=== PATIENT | female | born 1990 | race Caucasian/White ===

== ENCOUNTER 2017-10-20 05:26 | Inpatient (IN) | payer MEDICAID ==
[2017-10-20] MEDS ORDERED: Misoprostol 25 MCG (1/4 of 100 MCG) Tab VAG PRN (07:12)
[2017-10-20] MEDS ORDERED: Ondansetron 4 MG/2 ML SDV IVPUSH PRN (07:12)
[2017-10-20] MEDS ORDERED: Nalbuphine 20 MG/ML 1 ML Syringe IVPUSH PRN (07:12)
[2017-10-20] MEDS ORDERED: Sodium Chloride 0.9% 10 ML Syringe FLUSH PRN (07:12)
[2017-10-20] MEDS ORDERED: Oxytocin/Lactated Ringers 10 UNIT/1,000 ML BAG IV SCH ×2 (07:15)
--- NOTE | 2017-10-20 07:15 | PCM.LDHP ---
L&D History of Present Illness - General Date of Service: 10/20/17 Admit Problem/Dx: Patient Status Order with Admit Dx/Problem 10/20/17 07:13 Patient Status [ADT] Routine Admission Diagnosis/Problem Admission Diagnosis/Problem High risk Source of Information: Patient History Limitations: Reports: No Limitations - History of Present Illness Introduction:: Patient is a 26 y/o at 40 3/7 wks who presents for IOL. Doing well. Some cramping/pressure over the weekend, but no sher signs of labor. 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 : 2 Para: 0 LMP (Approximate): - Infectious Disease History Infectious Disease History: Reports: Hepatitis C, MRSA - Past Surgical History HEENT Surgical History: Reports: Oral Surgery GI Surgical History: Reports: Other (See Below) (Liver biopsy) Social & Family History - Tobacco Use Smoking Status *Q: Former Smoker - Alcohol Use Alcohol Use History: No - Recreational Drug Use Recreational Drug Use: No Drug Use in Last 12 Months: Yes Recreational Drug Type: Reports: Methamphetamine H&P Review of Systems - Review of Systems: Review Of Systems: See Below General: Reports: No Symptoms Pulmonary: Reports: No Symptoms Cardiovascular: Reports: No Symptoms Gastrointestinal: Reports: No Symptoms Genitourinary: Reports: No Symptoms Musculoskeletal: Reports: No Symptoms Psychiatric: Reports: No Symptoms Neurological: Reports: No Symptoms L&D Exam - Exam Exam: See Below - OB Specific Contraction Intensity: Irritability Movement: Active Heart Tones: Present Heart Tones per Min: 140 Heart Rate (FHR) Variability: Moderate (6-25 bmp) Presentation: Vertex - Livingston Score Livingston Score Cervix Position: Posterior Livingston Score Consistency: Soft Livingston Score Effacement: 51-70% Livingston Score Dilation: 1-2 cm Livingston Score Infant's Station: -2 Livingston Score Total: 6 - Exam General: Alert, Oriented, Cooperative Lungs: Clear to Auscultation, Normal Respiratory Effort Cardiovascular: Regular Rate, Regular Rhythm GI/Abdominal Exam: Soft, Non-Tender Genitourinary: Normal external exam Extremities: Normal Inspection Skin: Warm, Dry, Intact - Problem List (1) 40 weeks gestation of SNOMED Code(s): 82783928 ICD Code: Z3A.40 - 40 WEEKS GESTATION OF Status: Acute Current Visit: Yes (2) Hepatitis C SNOMED Code(s): 28228462 ICD Code: B19.20 - UNSPECIFIED VIRAL HEPATITIS C WITHOUT HEPATIC COMA Status: Acute Current Visit: Yes Qualifiers: Viral hepatitis chronicity: chronic Hepatic coma status: without hepatic coma Qualified Code(s): B18.2 - Chronic viral hepatitis C (3) History of methamphetamine abuse SNOMED Code(s): 201896867 ICD Code: Z87.898 - PERSONAL HISTORY OF OTHER SPECIFIED CONDITIONS Status: Acute Current Visit: Yes (4) Two vessel umbilical cord in malik , antepartum SNOMED Code(s): 022873439, 314310952 ICD Code: O09.899 - SUPERVISION OF OTHER HIGH RISK PREGNANCIES, UNSP TRIMESTER Status: Acute Current Visit: Yes Problem List Initiated/Reviewed/Updated: Yes Orders Last 24hrs: Active Orders 24 hr Category Date Time Status Patient Status [ADT] Routine ADT 10/20/17 07:13 Ordered Activity as Tolerated [RC] PFP Care 10/20/17 07:13 Ordered Communication Order [RC] ASDIRECTED Care 10/20/17 07:13 Ordered Communication Order [RC] ASDIRECTED Care 10/20/17 07:13 Ordered Communication Order [RC] ASDIRECTED Care 10/20/17 07:13 Ordered Monitoring [RC] INTERMITTENT Care 10/20/17 07:13 Ordered Non Stress Test [RC] PER UNIT ROUTINE Care 10/20/17 07:13 Ordered Notify Provider [RC] ASDIRECTED Care 10/20/17 07:13 Ordered Notify Provider [RC] PRN Care 10/20/17 07:13 Ordered Peripheral IV Care [RC] . DIRECTED Care 10/20/17 07:13 Ordered Vaginal Exam [RC] ASDIRECTED Care 10/20/17 07:13 Ordered Vital Signs [RC] ASDIRECTED Care 10/20/17 07:13 Ordered Vital Signs [RC] PER UNIT ROUTINE Care 10/20/17 07:13 Ordered Regular Diet [DIET] Diet 10/20/17 Breakfast Ordered CBC W/O DIFF,HEMOGRAM [HEME] Routine Lab 10/20/17 07:12 Ordered RAPID PLASMA REAGIN,RPR [CHEM] Routine Lab 10/20/17 07:13 Ordered TYPE AND SCREEN [BBK] Routine Lab 10/20/17 07:12 Ordered Lactated Ringers [Ringers, Lactated] 1,000 ml Med 10/20/17 07:15 Ordered IV ASDIRECTED Nalbuphine [Nubain] Med 10/20/17 07:12 Ordered 10 mg IVPUSH Q2H PRN Ondansetron [Zofran] Med 10/20/17 07:12 Ordered 4 mg IVPUSH Q4H PRN Oxytocin/Lactated Ringers [Pitocin in LR 10 Units/1,000 Med 10/20/17 07:15 Ordered ML] 10 unit in 1,000 ml IV .CONTINUOUS Oxytocin/Lactated Ringers [Pitocin in LR 10 Units/1,000 Med 10/20/17 07:15 Ordered ML] 10 unit in 1,000 ml IV TITRATE Sodium Chloride 0.9% [Saline Flush] Med 10/20/17 07:12 Ordered 10 ml FLUSH ASDIRECTED PRN miSOPROStol [Cytotec] Med 10/20/17 07:12 Ordered 25 mcg VAG Q4H PRN Electronic Heart Tones Internal [WOMSER] Per Unit Oth 10/20/17 07:13 Ordered Routine Peripheral IV Insertion Adult [OM.PC] Routine Oth 10/20/17 07:13 Ordered Assessment/Plan Comment:: 26 y/o at 40 3/7 wks in a complicated by 2 VC (normal growth) , hepatitis C, history of methamphetamine abuse, and current incarceration presents for IOL. * CBC, CMP, RPR, T&S * Will obtain MRSA swab in house to clear patient * Plan Cytotec to start IOL with pitocin/wilson bulb later on * GBS negative, no need for antibiotics * Pain management per patient preference * Anticipate
[2017-10-20] MEDS ORDERED: fentaNYL 100 MCG/2 ML SDV EPIDUR PRN (07:25)
[2017-10-20] MEDS ORDERED: ePHEDrine 50 MG/ML SDV IVPUSH PRN (07:25)
[2017-10-20] MEDS ORDERED: Misoprostol 25 MCG (1/4 of 100 MCG) Tab ONE (07:37)
--- NOTE | 2017-10-20 12:29 | PCM.PNLD ---
Labor Progress Note - VS & Meds Vital Signs: Last Vital Signs Temp 36.6 C 10/20/17 07:13 Pulse 67 10/20/17 07:13 Resp 16 10/20/17 07:13 BP 119/81 10/20/17 07:13 Pulse Ox Active Medications: Current Medications Ephedrine Sulfate (Ephedrine Sulfate) 5 mg IVPUSH ASDIRECTED PRN PRN Reason: HYPOTENTSION Fentanyl (Sublimaze) 100 mcg EPIDUR Q3H PRN PRN Reason: Pain Fentanyl/Bupivacaine HCl (Fentanyl/Bupivacaine/Ns 2 Mcg-0.125% 100 Ml) 100 ml EPIDUR ASDIRECTED YULIA Lactated Ringer's (Ringers, Lactated) 1,000 mls @ 40 mls/hr IV ASDIRECTED YULIA Oxytocin/Lactated Ringer's (Pitocin In Lr 10 Units/1,000 Ml) 10 unit in 1,000 mls @ 12 mls/hr IV TITRATE YULIA; Protocol Oxytocin/Lactated Ringer's (Pitocin In Lr 10 Units/1,000 Ml) 10 unit in 1,000 mls @ 500 mls/hr IV .CONTINUOUS YULIA Misoprostol (Cytotec) 25 mcg VAG Q4H PRN PRN Reason: cervical ripening Last Admin: 10/20/17 08:14 Dose: 25 mcg Nalbuphine HCl (Nubain) 10 mg IVPUSH Q2H PRN PRN Reason: pain Ondansetron HCl (Zofran) 4 mg IVPUSH Q4H PRN PRN Reason: Nausea/Vomiting Sodium Chloride (Saline Flush) 10 ml FLUSH ASDIRECTED PRN PRN Reason: Keep Vein Open Discontinued Medications Misoprostol (Cytotec) Confirm Administered Dose 25 mcg .ROUTE .STK-MED ONE Stop: 10/20/17 07:38 Last Admin: 10/20/17 11:58 Dose: Not Given - Uterine Contractions Uterine Monitoring Mode: External [place] Contraction Intensity: Mild Uterine Resting Tone: Soft - Monitoring Monitor Mode: External Ultrasound Heart Rate (FHR) Baseline: 135 Heart Rate (FHR) Variability: Moderate (6-25 bmp) Accelerations: Present, 15x15 Decelerations: None Strip Review: Category I - Vaginal Exam Dilation (cm): 2 Effacement (Percent): 75 Station: -2 Cervical Position: Midposition - Labor Progress (Free Text) Labor Progress: Doing well. Childress bulb placed. Will start pitocin.
[2017-10-20] MEDS: Lactated Ringers 1,000 ML IV SCH ×2 (12:42→16:00)
[2017-10-20] MEDS: Bupivacaine/fentaNYL/NS 100 ML Bag EPIDUR SCH (18:49)
--- NOTE | 2017-10-20 19:00 | PCM.PREANE ---
Preanesthetic Assessment - Anesthesia/Transfusion/Family Hx Anesthesia History: Prior Anesthesia Without Reaction Family History of Anesthesia Reaction: No Transfusion History: No Prior Transfusion(s) - Review of Systems General: No Symptoms Pulmonary: No Symptoms Cardiovascular: No Symptoms Gastrointestinal: Abdominal Pain (Contractions) Neurological: Numbness (fingers with ) Other: Reports: Liver Problems (hep C history) - Physical Assessment Pulse: 67 O2 Sat by Pulse Oximetry: 97 Respiratory Rate: 16 Blood Pressure: 119/61 Temperature: 36.3 C Vital Signs: Last Vital Signs Temp 36.6 C 10/20/17 07:13 Pulse 67 10/20/17 07:13 Resp 16 10/20/17 07:13 BP 119/81 10/20/17 07:13 Pulse Ox Height: 1.55 m Weight: 70.76 kg ASA Class: 2 Mental Status: Alert & Oriented x3 Airway Class: Mallampati = 2 Dentition: Reports: Normal Dentition Thyro-Mental Finger Breadths: 3 Mouth Opening Finger Breadths: 3 ROM/Head Extension: Full Lungs: Clear to Auscultation, Normal Respiratory Effort Cardiovascular: Regular Rate, Regular Rhythm - Lab Values: Laboratory Last Values WBC 8.63 K/mm3 (3.98-10.04) 10/20/17 07:44 RBC 4.27 M/mm3 (3.98-5.22) 10/20/17 07:44 Hgb 13.8 gm/L (11.2-15.7) 10/20/17 07:44 Hct 39.9 % (34.1-44.9) 10/20/17 07:44 MCV 93.4 fl (79.4-94.8) 10/20/17 07:44 MCH 32.3 pg (25.6-32.2) H 10/20/17 07:44 MCHC 34.6 g/dl (32.2-35.5) 10/20/17 07:44 RDW Std Deviation 42.3 fL (36.4-46.3) 10/20/17 07:44 Plt Count 219 K/mm3 (182-369) 10/20/17 07:44 MPV 9.0 fl (9.4-12.3) L 10/20/17 07:44 Sodium 139 mEq/L (136-145) 10/20/17 07:44 Potassium 3.7 mEq/L (3.5-5.1) 10/20/17 07:44 Chloride 105 mEq/L (98-107) 10/20/17 07:44 Carbon Dioxide 23 mEq/L (21-32) 10/20/17 07:44 Anion Gap 14.7 (5-15) 10/20/17 07:44 BUN 8 mg/dL (7-18) 10/20/17 07:44 Creatinine 0.6 mg/dL (0.55-1.02) 10/20/17 07:44 Est Cr Clr Drug Dosing TNP 10/20/17 07:44 Estimated GFR (MDRD) > 60 mL/min (>60) 10/20/17 07:44 BUN/Creatinine Ratio 13.3 (14-18) L 10/20/17 07:44 Glucose 80 mg/dL (74-106) 10/20/17 07:44 Calcium 8.7 mg/dL (8.5-10.1) 10/20/17 07:44 Total Bilirubin 0.5 mg/dL (0.2-1.0) 10/20/17 07:44 AST 28 U/L (15-37) 10/20/17 07:44 ALT 41 U/L (14-59) 10/20/17 07:44 Alkaline Phosphatase 224 U/L (46-116) H 10/20/17 07:44 Total Protein 6.1 g/dl (6.4-8.2) L 10/20/17 07:44 Albumin 2.5 g/dl (3.4-5.0) L 10/20/17 07:44 Globulin 3.6 gm/dL 10/20/17 07:44 Albumin/Globulin Ratio 0.7 (1-2) L 10/20/17 07:44 RPR Non-reactive (NONREACTIVE) 10/20/17 07:44 MRSA (PCR) Negative 10/20/17 08:00 Blood Type O POSITIVE 10/20/17 07:44 Gel Antibody Screen Negative 10/20/17 07:44 - Allergies Allergies/Adverse Reactions: Allergies Allergy/AdvReac Type Severity Reaction Status Date / Time No Known Allergies Allergy Verified 10/20/17 08:04 - Anesthesia Plan Pre-Op Medication Ordered: None - Acknowledgements Anesthesia Type Planned: Epidural Pt an Appropriate Candidate for the Planned Anesthesia: Yes Alternatives and Risks of Anesthesia Discussed w Pt/Guardian: Yes Pt/Guardian Understands and Agrees with Anesthesia Plan: Yes PreAnesthesia Questionnaire Gastrointestinal History: Reports: GERD, Hepatitis, Other (See Below) Other Gastrointestinal History: Hepatitis C 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: , 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 - Infectious Disease History Infectious Disease History: Reports: Hepatitis C, MRSA - Past Surgical History HEENT Surgical History: Reports: Oral Surgery GI Surgical History: Reports: Other (See Below) Other GI Surgeries/Procedures: liver biopsy - SUBSTANCE USE Smoking Status *Q: Former Smoker Second Hand Smoke Exposure: No Recreational Drug Use History: Yes Recreational Drug Type: Reports: Methamphetamine - HOME MEDS Home Medications: Home Meds Famotidine [Pepcid] 20 mg PO ASDIRECTED 10/20/17 [History] Vits #93/Iron Fum/FA [ Formula Tablet] 1 tab PO DAILY 10/20/17 [History] - CURRENT (IN HOUSE) MEDS Current Meds: Current Medications Ephedrine Sulfate (Ephedrine Sulfate) 5 mg IVPUSH ASDIRECTED PRN PRN Reason: HYPOTENTSION Fentanyl (Sublimaze) 100 mcg EPIDUR Q3H PRN PRN Reason: Pain Last Admin: 10/20/17 18:48 Dose: 100 mcg Fentanyl/Bupivacaine HCl (Fentanyl/Bupivacaine/Ns 2 Mcg-0.125% 100 Ml) 100 ml EPIDUR ASDIRECTED YULIA Last Admin: 10/20/17 18:49 Dose: 100 ml Lactated Ringer's (Ringers, Lactated) 1,000 mls @ 40 mls/hr IV ASDIRECTED YULIA Last Admin: 10/20/17 12:42 Dose: 40 mls/hr Oxytocin/Lactated Ringer's (Pitocin In Lr 10 Units/1,000 Ml) 10 unit in 1,000 mls @ 12 mls/hr IV TITRATE YULIA; Protocol Last Titration: 10/20/17 17:40 Dose: 5 munits/min, 30 mls/hr Oxytocin/Lactated Ringer's (Pitocin In Lr 10 Units/1,000 Ml) 10 unit in 1,000 mls @ 500 mls/hr IV .CONTINUOUS YULIA Misoprostol (Cytotec) 25 mcg VAG Q4H PRN PRN Reason: cervical ripening Last Admin: 10/20/17 08:14 Dose: 25 mcg Nalbuphine HCl (Nubain) 10 mg IVPUSH Q2H PRN PRN Reason: pain Ondansetron HCl (Zofran) 4 mg IVPUSH Q4H PRN PRN Reason: Nausea/Vomiting Sodium Chloride (Saline Flush) 10 ml FLUSH ASDIRECTED PRN PRN Reason: Keep Vein Open Discontinued Medications Misoprostol (Cytotec) Confirm Administered Dose 25 mcg .ROUTE .[employer] D&R ONE Stop: 10/20/17 07:38 Last Admin: 10/20/17 11:58 Dose: Not Given
--- NOTE | 2017-10-20 19:46 | PCM.PNLD ---
Labor Progress Note - VS & Meds Vital Signs: Last Vital Signs Temp 36.3 C 10/20/17 19:00 Pulse 67 10/20/17 19:00 Resp 16 10/20/17 19:00 BP 119/61 10/20/17 19:00 Pulse Ox 97 10/20/17 19:00 Active Medications: Current Medications Ephedrine Sulfate (Ephedrine Sulfate) 5 mg IVPUSH ASDIRECTED PRN PRN Reason: HYPOTENTSION Fentanyl (Sublimaze) 100 mcg EPIDUR Q3H PRN PRN Reason: Pain Last Admin: 10/20/17 18:48 Dose: 100 mcg Fentanyl/Bupivacaine HCl (Fentanyl/Bupivacaine/Ns 2 Mcg-0.125% 100 Ml) 100 ml EPIDUR ASDIRECTED YULIA Last Admin: 10/20/17 18:49 Dose: 100 ml Lactated Ringer's (Ringers, Lactated) 1,000 mls @ 40 mls/hr IV ASDIRECTED YULIA Last Admin: 10/20/17 16:00 Dose: 40 mls/hr Oxytocin/Lactated Ringer's (Pitocin In Lr 10 Units/1,000 Ml) 10 unit in 1,000 mls @ 12 mls/hr IV TITRATE YULIA; Protocol Last Titration: 10/20/17 17:40 Dose: 5 munits/min, 30 mls/hr Oxytocin/Lactated Ringer's (Pitocin In Lr 10 Units/1,000 Ml) 10 unit in 1,000 mls @ 500 mls/hr IV .CONTINUOUS YULIA Misoprostol (Cytotec) 25 mcg VAG Q4H PRN PRN Reason: cervical ripening Last Admin: 10/20/17 08:14 Dose: 25 mcg Nalbuphine HCl (Nubain) 10 mg IVPUSH Q2H PRN PRN Reason: pain Ondansetron HCl (Zofran) 4 mg IVPUSH Q4H PRN PRN Reason: Nausea/Vomiting Sodium Chloride (Saline Flush) 10 ml FLUSH ASDIRECTED PRN PRN Reason: Keep Vein Open Discontinued Medications Misoprostol (Cytotec) Confirm Administered Dose 25 mcg .ROUTE .STK-MED ONE Stop: 10/20/17 07:38 Last Admin: 10/20/17 11:58 Dose: Not Given - Uterine Contractions Uterine Monitoring Mode: External [place] Contraction Intensity: Mild Uterine Resting Tone: Soft - Monitoring Monitor Mode: External Ultrasound Heart Rate (FHR) Baseline: 140 Heart Rate (FHR) Variability: Moderate (6-25 bmp) Accelerations: Present, 15x15 Decelerations: Late Strip Review: Category II - Vaginal Exam Dilation (cm): 4 Effacement (Percent): 80 Station: -2 Cervical Position: Midposition - Labor Progress (Free Text) Labor Progress: Patient doing well currently. Pitocin up to a high of 12 and then started to have late decelerations. Pitocin decreased by half. Then received epidural and had blood pressure drop. Due to this did have a prolonged deceleration. Pitocin discontinued completely. Now comfortable. AROM performed with release of clear fluid. Will continue to monitor closely.
[2017-10-20] MEDS ORDERED: Bupivacaine 0.25% 10 ML SDV ONE (22:00)
[2017-10-21] MEDS: Bupivacaine/fentaNYL/NS 100 ML Bag EPIDUR SCH (02:32)
[2017-10-21] MEDS ORDERED: Acetaminophen 325 MG Tab PO ONE (03:34)
[2017-10-21] MEDS: Ampicillin 2 GM in Sodium Chloride 0.9% 100 ML IV SCH ×4 (04:16→22:38)
[2017-10-21] MEDS ORDERED: Gentamicin 40 MG/ML 2 ML Vial ONE (04:19)
[2017-10-21] MEDS ORDERED: Sodium Chloride 0.9% 100 ML ONE (04:21)
[2017-10-21] MEDS ORDERED: Citric Acid/Sodium Citrate Solution 30 ML Cup PO ONE (04:49)
[2017-10-21] MEDS ORDERED: Metoclopramide 10 MG/2 ML SDV IVPUSH ONE (04:49)
[2017-10-21] MEDS ORDERED: Clindamycin Phosphate 900 MG in Sodium Chloride 0.9% 100 ML IV ONE (04:49)
--- NOTE | 2017-10-21 04:55 | PCM.SN ---
- Free Text/Narrative Note: 0315 Called by nursing that patient 9 cm and with fever. Started Ampicillin and Gentamicin for chorioamnionitis. Presented to hospital afterwards. Exam by myself by arrival shows anterior lip and 0 station, but unfortunately baby asynclinic. Anterior lip reduced. With pushing effort head does not go past 0 station and attempt made to help rotate baby are unsuccessful. After slightly greater than 1 hour of pushing there has been no descent of baby. Explained to patient while this is not uncommon for a 1st time mom I am uncertain if her baby will rotate to allow vaginal delivery even with several more hours of pushing. Also, with Chorioamniotitis and pushing baby with episodes of tachycardia and variable decelerations. FHR has been intermittently with decelerations overnight as well. Reviewed all of the above with patient and she is willing to proceed with PLTCS. OR crew notified at [phone]. Cora Ochoa MD
[2017-10-21] MEDS ORDERED: Lidocaine 2% with EPINEPHrine 1:200,000 20 ML SDV ONE (04:59)
[2017-10-21] MEDS ORDERED: ceFAZolin 1 GM Vial ONE (04:59)
[2017-10-21] MEDS ORDERED: Lactated Ringers 1,000 ML ONE (05:32)
[2017-10-21] MEDS ORDERED: Ketorolac 30 MG/ML SDV ONE (05:32)
[2017-10-21] MEDS ORDERED: Oxytocin 10 Units/1 ML SDV ONE (05:32)
[2017-10-21] MEDS ORDERED: Meperidine PF 50 MG/ML Syringe ONE (05:36)
[2017-10-21] MEDS ORDERED: Phenylephrine/Normal Saline 100 MCG/ML 10 ML Syringe ONE (05:39)
[2017-10-21] MEDS ORDERED: Morphine PF 10 MG/10 ML SDV ONE (05:53)
--- NOTE | 2017-10-21 06:15 | PCM.POSTAN ---
POST ANESTHESIA ASSESSMENT - MENTAL STATUS Mental Status: Alert, Oriented - VITAL SIGNS Pulse Rate: 94 SaO2: 99 Resp Rate: 17 Blood Pressure: 91/51 Temperature: 37.7 C - RESPIRATORY Respiratory Status: Respiratory Rate WNL, Airway Patent, O2 Saturation Stable, Supplemental Oxygen - CARDIOVASCULAR CV Status: Pulse Rate WNL, Blood Pressure Stable - GASTROINTESTINAL GI Status: No Symptoms - PAIN Pain Score: 0 - POST OP HYDRATION Hydration Status: Adequate & Stable - OBSERVATIONS Free Text/Narrative:: no anesthesia complications noted
--- NOTE | 2017-10-21 06:15 | PCM.OPNOTE ---
- General Post-Op/Procedure Note Date of Surgery/Procedure: 10/21/17 Operative Procedure(s): Primary low transverse Findings: Baby boy in a vertex presentation - ROP. Weight of 7lbs 8oz, APGARS of 1, 4, and 7 Pre Op Diagnosis: 40 4/7 wks. 2VC. Chorioamnionitis. FTP - in 2nd stage ( although limited to only 1 hr given NRFS) Post-Op Diagnosis: Same Anesthesia Technique: Epidural Primary Surgeon: Cora Ochoa Secondary Surgeon: Dagoberto Colorado Jr Anesthesia Provider: Guillermo Waldrop Reason Manager Infrastructure Was Necessary: Speed, safety of case Pathology: Cord gas segment obtained. Cord blood obtained. Placenta discarded. Fluid Replacement, Intraop: 1,500 Output, Urine Amount: 15 EBL in mLs: 700 Complications: None Condition: Good Free Text/Narrative:: The risks, benefits, indications, potential complications, and alternatives were explained to the patient and informed consent obtained. After induction of anesthesia, the patient was placed in a supine position and then draped and prepped in the usual sterile manner. A Pfannenstiel incision was made and carried down through the subcutaneous tissue to the fascia. Fascial incision was made and extended transversely. The fascia was from the underlying rectus tissue superiorly and inferiorly. The peritoneum was identified and entered. Peritoneal incision was extended longitudinally. The utero-vesical peritoneal reflection was incised transversely and the bladder flap was bluntly freed from the lower uterine segment. A low transverse uterine incision was made sharply with a scalpel and extended bluntly in a cephalocaudad direction. A baby boy was delivered from a vertex presentation with APGARS as above. After the umbilical cord was clamped and cut a cord segment was obtained for cord gasses. Cord blood was obtained for evaluation. The placenta was removed intact and appeared normal. The uterus was exteriorized and cleared of clots. The uterine outline, tubes and ovaries appeared normal. The uterine incision was closed with running locked sutures of 0 Vicryl. Hemostasis was obtained with a second imbricating layer of 0 vicryl. The uterus was then placed back into the abdomen. Several additional sutures of 0 vicryl placed at left aspect of hysterotomy to obtain hemostasis. Yonny-seal then placed across hysterotomy. The fascia was then reapproximated with running sutures of 0 Vicryl. The sucutaneous tissue was irrigated with sterile warm normal saline, hemostasis obtained with cautery. The skin was reapproximated with running Subcuticular 4 -0 monocryl sutures. Instrument, sponge, and needle counts were correct prior the abdominal closure and at the conclusion of the case.
[2017-10-21] MEDS ORDERED: Benzocaine/Menthol 20%-0.5% Spray 56 GM Canister TOP PRN (08:09)
[2017-10-21] MEDS ORDERED: Witch Hazel Medicated Pads 100/Jar TOP PRN (11:37)
[2017-10-21] MEDS ORDERED: Ondansetron 4 MG/2 ML SDV IV PRN (11:37)
[2017-10-21] MEDS ORDERED: Dextrose 5%-Lactated Ringers 1,000 ML IV SCH (11:37)
[2017-10-21] MEDS ORDERED: Lanolin 100% Cream 7 GM Tube TOP PRN (11:37)
[2017-10-21] MEDS ORDERED: diphenhydrAMINE 50 MG/ML SDV IVPUSH PRN (11:37)
[2017-10-21] MEDS ORDERED: Docusate Sodium 100 MG Cap PO PRN (11:37)
[2017-10-21] MEDS ORDERED: ePHEDrine 50 MG/ML SDV IVPUSH PRN (11:37)
[2017-10-21] MEDS ORDERED: Naloxone 0.4 MG/ML SDV IVPUSH PRN (11:37)
[2017-10-21] MEDS: Ketorolac 30 MG/ML SDV IVPUSH SCH ×2 (12:00→18:09)
[2017-10-21] MEDS: Clindamycin Phosphate 900 MG in Sodium Chloride 0.9% 100 ML IV SCH ×2 (13:30→21:36)
[2017-10-21] MEDS: Acetaminophen/oxyCODONE 325-5 MG Tab PO PRN (22:56)
[2017-10-22] MEDS: Ketorolac 30 MG/ML SDV IVPUSH SCH (00:02)
[2017-10-22] MEDS: Ampicillin 2 GM in Sodium Chloride 0.9% 100 ML IV SCH (03:49)
[2017-10-22] MEDS ORDERED: Gentamicin 40 MG/ML 2 ML Vial ONE (04:46)
[2017-10-22] MEDS ORDERED: Sodium Chloride 0.9% 100 ML ONE (04:54)
[2017-10-22] MEDS: Clindamycin Phosphate 900 MG in Sodium Chloride 0.9% 100 ML IV SCH (06:09)
--- NOTE | 2017-10-22 06:59 | PCM.PNPP ---
- General Info Date of Service: 10/22/17 Functional Status: Reports: Pain Controlled, Tolerating Diet, Ambulating, Urinating - Review of Systems General: Reports: No Symptoms Pulmonary: Reports: No Symptoms Cardiovascular: Reports: No Symptoms Gastrointestinal: Reports: No Symptoms Genitourinary: Reports: No Symptoms Neurological: Reports: Weakness (leg ) - Patient Data Vital Signs - Most Recent: Last Vital Signs Temp 36.8 C 10/22/17 03:58 Pulse 94 10/22/17 06:06 Resp 16 10/22/17 06:06 BP 100/78 10/22/17 03:58 Pulse Ox 99 10/22/17 06:06 Weight - Most Recent: 70.76 kg I&O - Last 24 Hours: Intake & Output 10/21/17 10/21/17 10/22/17 14:59 22:59 06:59 Intake Total 2490 Output Total 1818 402 525 Balance 877 -118 -125 Lab Results - Last 24 Hours: Laboratory Results - last 24 hr 10/22/17 Range/Units 06:17 WBC 15.67 H (3.98-10.04) K/mm3 RBC 3.22 L (3.98-5.22) M/mm3 Hgb 10.4 L (11.2-15.7) gm/L Hct 31.0 L (34.1-44.9) % MCV 96.3 H (79.4-94.8) fl MCH 32.3 H (25.6-32.2) pg MCHC 33.5 (32.2-35.5) g/dl RDW Std Deviation 43.1 (36.4-46.3) fL Plt Count 167 L (182-369) K/mm3 MPV 9.3 L (9.4-12.3) fl Med Orders - Current: Current Medications Benzocaine/Menthol (Dermoplast Pain Relief Deport) 0 gm TOP ASDIRECTED PRN PRN Reason: Perineal Comfort Measure Last Admin: 10/21/17 10:28 Dose: 1 canister Diphenhydramine HCl (Benadryl) 25 mg IVPUSH Q6H PRN PRN Reason: Itching or Nausea Docusate Sodium (Colace) 100 mg PO Q12H PRN PRN Reason: Constipation Emollient Ointment (Lansinoh Hpa) 0 gm TOP ASDIRECTED PRN PRN Reason: Sore Nipples Ibuprofen (Motrin) 600 mg PO Q6H PRN PRN Reason: mild pain or fever Naloxone HCl (Narcan) 0.1 mg IVPUSH SEECOMMENT PRN PRN Reason: Respiratory Depression Ondansetron HCl (Zofran) 4 mg IV Q8H PRN PRN Reason: Nausea/Vomiting Oxycodone/Acetaminophen (Percocet 325-5 Mg) 2 tab PO Q4H PRN PRN Reason: Pain (moderate 4-6) Last Admin: 10/21/17 22:56 Dose: 1 tab Witch Ondina (Tucks) 1 pad TOP ASDIRECTED PRN PRN Reason: Perineal Comfort Measure Discontinued Medications Acetaminophen (Tylenol) 975 mg PO NOW ONE Stop: 10/21/17 03:35 Last Admin: 10/21/17 03:46 Dose: 975 mg Bupivacaine HCl (Sensorcaine-Mpf 0.25%) 10 ml .ROUTE .STK-MED ONE Stop: 10/20/17 22:01 Cefazolin Sodium (Ancef) Confirm Administered Dose 2 gm .ROUTE .STK-MED ONE Stop: 10/21/17 05:00 Citric Acid/Sodium Citrate (Bicitra Solution) 30 ml PO ONETIME ONE Stop: 10/21/17 04:50 Last Admin: 10/21/17 04:59 Dose: 30 ml Ephedrine Sulfate (Ephedrine Sulfate) 5 mg IVPUSH ASDIRECTED PRN PRN Reason: HYPOTENTSION Ephedrine Sulfate (Ephedrine Sulfate) 5 mg IVPUSH SEECOMMENT PRN PRN Reason: Other Fentanyl (Sublimaze) 100 mcg EPIDUR Q3H PRN PRN Reason: Pain Last Admin: 10/20/17 18:48 Dose: 100 mcg Fentanyl/Bupivacaine HCl (Fentanyl/Bupivacaine/Ns 2 Mcg-0.125% 100 Ml) 100 ml EPIDUR ASDIRECTED [facility] Last Admin: 10/21/17 02:32 Dose: 100 ml Gentamicin Sulfate (Gentamicin) Confirm Administered Dose 400 mg .ROUTE .STK- MED ONE Stop: 10/21/17 04:20 Last Admin: 10/21/17 16:35 Dose: Not Given Lactated Ringer's (Ringers, Lactated) 1,000 mls @ 40 mls/hr IV ASDIRECTED [facility] Last Admin: 10/20/17 16:00 Dose: 40 mls/hr Oxytocin/Lactated Ringer's (Pitocin In Lr 10 Units/1,000 Ml) 10 unit in 1,000 mls @ 12 mls/hr IV TITRATE [facility]; Protocol Last Titration: 10/20/17 23:48 Dose: 4 munits/min, 24 mls/hr Oxytocin/Lactated Ringer's (Pitocin In Lr 10 Units/1,000 Ml) 10 unit in 1,000 mls @ 500 mls/hr IV .CONTINUOUS [facility] Ampicillin Sodium 2 gm/ Sodium (Chloride) 100 mls @ 200 mls/hr IV Q6H [facility] Last Admin: 10/22/17 03:49 Dose: 200 mls/hr Gentamicin Sulfate 350 mg/ (Sodium Chloride) 108.75 mls @ 200 mls/hr IV ONETIME ONE Stop: 10/21/17 04:07 Last Admin: 10/21/17 04:34 Dose: 200 mls/hr Clindamycin Phosphate 900 mg/ (Sodium Chloride) 106 mls @ 100 mls/hr IV ONETIME ONE Stop: 10/21/17 05:52 Last Admin: 10/21/17 16:36 Dose: Not Given Lactated Ringer's (Ringers, Lactated) Confirm Administered Dose 1,000 mls @ as directed .ROUTE .[facility] ONE Stop: 10/21/17 05:33 Sodium Chloride (Normal Saline) Confirm Administered Dose 100 mls @ as directed .ROUTE .[facility] ONE Stop: 10/21/17 04:22 Last Admin: 10/21/17 16:35 Dose: Not Given Clindamycin Phosphate 900 mg/ (Sodium Chloride) 106 mls @ 100 mls/hr IV Q8H [facility] Last Admin: 10/22/17 06:09 Dose: 100 mls/hr Dextrose/Lactated Ringer's (Dextrose 5%-Lactated Ringers) 1,000 mls @ 125 mls/ hr IV ASDIRECTED [facility] Stop: 10/21/17 19:36 Last Admin: 10/21/17 12:02 Dose: Not Given Gentamicin Sulfate 350 mg/ (Sodium Chloride) 108.75 mls @ 200 mls/hr IV ONETIME ONE Stop: 10/22/17 05:02 Last Admin: 10/22/17 05:26 Dose: 200 mls/hr Sodium Chloride (Normal Saline) Confirm Administered Dose 100 mls @ as directed .ROUTE .STK-MED ONE Stop: 10/22/17 04:55 Ketorolac Tromethamine (Toradol) Confirm Administered Dose 30 mg .ROUTE .STK- MED ONE Stop: 10/21/17 05:33 Ketorolac Tromethamine (Toradol) 30 mg IVPUSH Q6H [facility] Stop: 10/22/17 00:01 Last Admin: 10/22/17 00:02 Dose: 30 mg Lidocaine/Epinephrine (Xylocaine-Mpf 2%-Epi 1:200,000) Confirm Administered Dose 20 ml .ROUTE .STK-MED ONE Stop: 10/21/17 05:00 Meperidine HCl (Demerol) Confirm Administered Dose 50 mg .ROUTE .STK-MED ONE Stop: 10/21/17 05:37 Metoclopramide HCl (Reglan) 10 mg IVPUSH ONETIME ONE Stop: 10/21/17 04:50 Last Admin: 10/21/17 05:03 Dose: 10 mg Misoprostol (Cytotec) 25 mcg VAG Q4H PRN PRN Reason: cervical ripening Last Admin: 10/20/17 08:14 Dose: 25 mcg Misoprostol (Cytotec) Confirm Administered Dose 25 mcg .ROUTE .STK-MED ONE Stop: 10/20/17 07:38 Last Admin: 10/20/17 11:58 Dose: Not Given Morphine Sulfate (Duramorph Pf) Confirm Administered Dose 10 mg .ROUTE .STK-MED ONE Stop: 10/21/17 05:54 Nalbuphine HCl (Nubain) 10 mg IVPUSH Q2H PRN PRN Reason: pain Ondansetron HCl (Zofran) 4 mg IVPUSH Q4H PRN PRN Reason: Nausea/Vomiting Last Admin: 10/21/17 03:46 Dose: 4 mg Oxytocin (Pitocin) Confirm Administered Dose 10 unit .ROUTE .STK-MED ONE Stop: 10/21/17 05:33 Phenylephrine HCl (Phenylephrine In Ns 100 Mcg/Ml) Confirm Administered Dose 1 mg .ROUTE .STK-MED ONE Stop: 10/21/17 05:40 Sodium Chloride (Saline Flush) 10 ml FLUSH ASDIRECTED PRN PRN Reason: Keep Vein Open - Interaction Infant Disposition, : in Room with Family Interaction: Holding Feeding: Attempted ; Nursed Fair/Poor, Bottle Fed Infant - Recovery Exam Fundal Tone: Firm Fundal Level: 1 Fingerbreadths Above Umbilicus Fundal Placement: Midline Lochia Amount: Scant Lochia Color: Rubra/Red Perineum Description: Intact, Minimal Bruising/Swelling Episiotomy/Laceration: None Bladder Status: Voiding Urinary Elimination: Voided - Exam General: Alert, Oriented, Cooperative Lungs: Clear to Auscultation, Normal Respiratory Effort Cardiovascular: Regular Rate, Regular Rhythm GI/Abdominal Exam: Soft, Tender (appropriate post op) - Problem List & Annotations (1) 40 weeks gestation of SNOMED Code(s): 02037227 Code(s): Z3A.40 - 40 WEEKS GESTATION OF Status: Acute Current Visit: Yes (2) Hepatitis C SNOMED Code(s): 08699428 Code(s): B19.20 - UNSPECIFIED VIRAL HEPATITIS C WITHOUT HEPATIC COMA Status : Acute Current Visit: Yes Qualifiers: Viral hepatitis chronicity: chronic Hepatic coma status: without hepatic coma Qualified Code(s): B18.2 - Chronic viral hepatitis C (3) History of methamphetamine abuse SNOMED Code(s): 094779974 Code(s): Z87.898 - PERSONAL HISTORY OF OTHER SPECIFIED CONDITIONS Status: Acute Current Visit: Yes (4) Two vessel umbilical cord in malik , antepartum SNOMED Code(s): 932419753, 573309612 Code(s): O09.899 - SUPERVISION OF OTHER HIGH RISK PREGNANCIES, UNSP TRIMESTER Status: Acute Current Visit: Yes (5) Chorioamnionitis SNOMED Code(s): 73407586 Code(s): O41.1290 - CHORIOAMNIONITIS, UNSP TRIMESTER, NOT APPLICABLE OR UNSP Status: Acute Current Visit: Yes (6) Failure to progress in second stage of labor SNOMED Code(s): 778729210 Code(s): O62.2 - OTHER UTERINE INERTIA Status: Acute Current Visit: Yes - Problem List Review Problem List Initiated/Reviewed/Updated: Yes - My Orders Last 24 Hours: My Active Orders 10/21/17 06:10 Resuscitation Status Routine 10/21/17 08:09 Benzocaine/Menthol [Dermoplast Pain Relief Deport] 0 gm TOP ASDIRECTED PRN 10/21/17 11:37 Activity as Tolerated [RC] .Routine Communication Order [RC] PER UNIT ROUTINE Intake and Output [RC] Q4H Notify Provider Intake and Out [RC] ASDIRECTED Vital Signs [RC] 03,09,15,21 Acetaminophen/oxyCODONE [Percocet 325-5 MG] 2 tab PO Q4H PRN Docusate Sodium [Colace] 100 mg PO Q12H PRN Lanolin [Lansinoh HPA] See Dose Instructions TOP ASDIRECTED PRN Naloxone [Narcan] 0.1 mg IVPUSH SEECOMMENT PRN Ondansetron [Zofran] 4 mg IV Q8H PRN Witch Ondina [Tucks] 1 pad TOP ASDIRECTED PRN diphenhydrAMINE [Benadryl] 25 mg IVPUSH Q6H PRN Assess Lochia [WOMSER] Per Unit Routine Assess Uterine Involution [WOMSER] Per Unit Routine Breast Pump [WOMSER] Per Unit Routine Sequential Compression Device [OM.PC] Per Unit Routine 10/21/17 Breakfast Regular Diet [DIET] 10/22/17 06:00 Ibuprofen [Motrin] 600 mg PO Q6H PRN - Assessment Assessment:: 26 y/o POD#1 from PLTCS after diagnosis of chorioamnionitis, NRFS, and FTP in 1st stage (although only able to push a little over 1 hour due to heart rate tracing) - Plan Plan:: S/p PLTCS * Amp, Gent, and Clinda to be discontinued this am as afebrile. * Hb with appropriate drop. No further monitoring * Will continue to work on mobility. If still concerns with leg weakness will have anesthesia visit patient at end of day * Routine cares * Breast and bottle feeding
--- NOTE | 2017-10-22 08:12 | PCM48HPAN ---
Post Anesthesia Note - EVALUATION WITHIN 48HRS OF ANESTHETIC Vital Signs in Normal Range: Yes Patient Participated in Evaluation: Yes Respiratory Function Stable: Yes Airway Patent: Yes Cardiovascular Function Stable: Yes Hydration Status Stable: Yes Pain Control Satisfactory: Yes Nausea and Vomiting Control Satisfactory: Yes Mental Status Recovered: Yes Pulse Rate: 94 Resp Rate: 16 Temperature: 98.2 F Blood Pressure: 100/78 - COMMENTS/OBSERVATIONS Free Text/Narrative:: Patient complained of some numbness still in left leg- inner thigh-may be due to epidural or positioning during pushing phase. She states its much better than yesterday.
[2017-10-22] MEDS: Acetaminophen/oxyCODONE 325-5 MG Tab PO PRN ×2 (08:55→22:14)
[2017-10-22] MEDS: Ibuprofen 600 MG Tab PO PRN ×2 (13:11→20:53)
[2017-10-23] MEDS: Ibuprofen 600 MG Tab PO PRN ×4 (03:20→22:36)
[2017-10-23] MEDS: Acetaminophen/oxyCODONE 325-5 MG Tab PO PRN ×3 (05:13→18:46)
--- NOTE | 2017-10-23 06:54 | PCM.PNPP ---
- General Info Date of Service: 10/23/17 Functional Status: Reports: Pain Controlled, Tolerating Diet, Ambulating, Urinating - Review of Systems General: Reports: No Symptoms Pulmonary: Reports: No Symptoms Cardiovascular: Reports: No Symptoms Gastrointestinal: Reports: Abdominal Pain Genitourinary: Reports: No Symptoms Neurological: Reports: Weakness (improving ) - Patient Data Vital Signs - Most Recent: Last Vital Signs Temp 36.4 C 10/23/17 03:16 Pulse 91 10/23/17 03:16 Resp 18 10/23/17 03:16 BP 96/42 L 10/23/17 03:16 Pulse Ox 100 10/23/17 03:16 Weight - Most Recent: 70.76 kg I&O - Last 24 Hours: Intake & Output 10/22/17 10/22/17 10/23/17 14:59 22:59 06:59 Intake Total 60 Balance 60 Micro Results - Last 24 Hours: Microbiology 10/20/17 08:00 MRSA Culture - Final Axilla, Left NO MRSA ISOLATED Med Orders - Current: Current Medications Benzocaine/Menthol (Dermoplast Pain Relief [place]) 0 gm TOP ASDIRECTED PRN PRN Reason: Perineal Comfort Measure Last Admin: 10/21/17 10:28 Dose: 1 canister Diphenhydramine HCl (Benadryl) 25 mg IVPUSH Q6H PRN PRN Reason: Itching or Nausea Docusate Sodium (Colace) 100 mg PO Q12H PRN PRN Reason: Constipation Emollient Ointment (Lansinoh Hpa) 0 gm TOP ASDIRECTED PRN PRN Reason: Sore Nipples Ibuprofen (Motrin) 600 mg PO Q6H PRN PRN Reason: mild pain or fever Last Admin: 10/23/17 03:20 Dose: 600 mg Naloxone HCl (Narcan) 0.1 mg IVPUSH SEECOMMENT PRN PRN Reason: Respiratory Depression Ondansetron HCl (Zofran) 4 mg IV Q8H PRN PRN Reason: Nausea/Vomiting Oxycodone/Acetaminophen (Percocet 325-5 Mg) 2 tab PO Q4H PRN PRN Reason: Pain (moderate 4-6) Last Admin: 10/23/17 05:13 Dose: 2 tab Witch Ondina (Tucks) 1 pad TOP ASDIRECTED PRN PRN Reason: Perineal Comfort Measure Discontinued Medications Acetaminophen (Tylenol) 975 mg PO NOW ONE Stop: 10/21/17 03:35 Last Admin: 10/21/17 03:46 Dose: 975 mg Bupivacaine HCl (Sensorcaine-Mpf 0.25%) 10 ml .ROUTE .STK-MED ONE Stop: 10/20/17 22:01 Cefazolin Sodium (Ancef) Confirm Administered Dose 2 gm .ROUTE .STK-MED ONE Stop: 10/21/17 05:00 Citric Acid/Sodium Citrate (Bicitra Solution) 30 ml PO ONETIME ONE Stop: 10/21/17 04:50 Last Admin: 10/21/17 04:59 Dose: 30 ml Ephedrine Sulfate (Ephedrine Sulfate) 5 mg IVPUSH ASDIRECTED PRN PRN Reason: HYPOTENTSION Ephedrine Sulfate (Ephedrine Sulfate) 5 mg IVPUSH SEECOMMENT PRN PRN Reason: Other Fentanyl (Sublimaze) 100 mcg EPIDUR Q3H PRN PRN Reason: Pain Last Admin: 10/20/17 18:48 Dose: 100 mcg Fentanyl/Bupivacaine HCl (Fentanyl/Bupivacaine/Ns 2 Mcg-0.125% 100 Ml) 100 ml EPIDUR ASDIRECTED [facility] Last Admin: 10/21/17 02:32 Dose: 100 ml Gentamicin Sulfate (Gentamicin) Confirm Administered Dose 400 mg .ROUTE .STK- MED ONE Stop: 10/21/17 04:20 Last Admin: 10/21/17 16:35 Dose: Not Given Gentamicin Sulfate (Gentamicin) Confirm Administered Dose 400 mg .ROUTE .STK- MED ONE Stop: 10/22/17 04:47 Last Admin: 10/22/17 10:05 Dose: Not Given Lactated Ringer's (Ringers, Lactated) 1,000 mls @ 40 mls/hr IV ASDIRECTED [facility] Last Admin: 10/20/17 16:00 Dose: 40 mls/hr Oxytocin/Lactated Ringer's (Pitocin In Lr 10 Units/1,000 Ml) 10 unit in 1,000 mls @ 12 mls/hr IV TITRATE YULIA; Protocol Last Titration: 10/20/17 23:48 Dose: 4 munits/min, 24 mls/hr Oxytocin/Lactated Ringer's (Pitocin In Lr 10 Units/1,000 Ml) 10 unit in 1,000 mls @ 500 mls/hr IV .CONTINUOUS [facility] Ampicillin Sodium 2 gm/ Sodium (Chloride) 100 mls @ 200 mls/hr IV Q6H [facility] Last Admin: 10/22/17 03:49 Dose: 200 mls/hr Gentamicin Sulfate 350 mg/ (Sodium Chloride) 108.75 mls @ 200 mls/hr IV ONETIME ONE Stop: 10/21/17 04:07 Last Admin: 10/21/17 04:34 Dose: 200 mls/hr Clindamycin Phosphate 900 mg/ (Sodium Chloride) 106 mls @ 100 mls/hr IV ONETIME ONE Stop: 10/21/17 05:52 Last Admin: 10/21/17 16:36 Dose: Not Given Lactated Ringer's (Ringers, Lactated) Confirm Administered Dose 1,000 mls @ as directed .ROUTE .STK-MED ONE Stop: 10/21/17 05:33 Sodium Chloride (Normal Saline) Confirm Administered Dose 100 mls @ as directed .ROUTE .STK-MED ONE Stop: 10/21/17 04:22 Last Admin: 10/21/17 16:35 Dose: Not Given Clindamycin Phosphate 900 mg/ (Sodium Chloride) 106 mls @ 100 mls/hr IV Q8H [facility] Last Admin: 10/22/17 06:09 Dose: 100 mls/hr Dextrose/Lactated Ringer's (Dextrose 5%-Lactated Ringers) 1,000 mls @ 125 mls/ hr IV ASDIRECTED [facility] Stop: 10/21/17 19:36 Last Admin: 10/21/17 12:02 Dose: Not Given Gentamicin Sulfate 350 mg/ (Sodium Chloride) 108.75 mls @ 200 mls/hr IV ONETIME ONE Stop: 10/22/17 05:02 Last Admin: 10/22/17 05:26 Dose: 200 mls/hr Sodium Chloride (Normal Saline) Confirm Administered Dose 100 mls @ as directed .ROUTE .STK-MED ONE Stop: 10/22/17 04:55 Last Admin: 10/22/17 10:05 Dose: Not Given Ketorolac Tromethamine (Toradol) Confirm Administered Dose 30 mg .ROUTE .STK- MED ONE Stop: 10/21/17 05:33 Ketorolac Tromethamine (Toradol) 30 mg IVPUSH Q6H [facility] Stop: 10/22/17 00:01 Last Admin: 10/22/17 00:02 Dose: 30 mg Lidocaine/Epinephrine (Xylocaine-Mpf 2%-Epi 1:200,000) Confirm Administered Dose 20 ml .ROUTE .STK-MED ONE Stop: 10/21/17 05:00 Meperidine HCl (Demerol) Confirm Administered Dose 50 mg .ROUTE .STK-MED ONE Stop: 10/21/17 05:37 Metoclopramide HCl (Reglan) 10 mg IVPUSH ONETIME ONE Stop: 10/21/17 04:50 Last Admin: 10/21/17 05:03 Dose: 10 mg Misoprostol (Cytotec) 25 mcg VAG Q4H PRN PRN Reason: cervical ripening Last Admin: 10/20/17 08:14 Dose: 25 mcg Misoprostol (Cytotec) Confirm Administered Dose 25 mcg .ROUTE .STK-MED ONE Stop: 10/20/17 07:38 Last Admin: 10/20/17 11:58 Dose: Not Given Morphine Sulfate (Duramorph Pf) Confirm Administered Dose 10 mg .ROUTE .STK-MED ONE Stop: 10/21/17 05:54 Nalbuphine HCl (Nubain) 10 mg IVPUSH Q2H PRN PRN Reason: pain Ondansetron HCl (Zofran) 4 mg IVPUSH Q4H PRN PRN Reason: Nausea/Vomiting Last Admin: 10/21/17 03:46 Dose: 4 mg Oxytocin (Pitocin) Confirm Administered Dose 10 unit .ROUTE .STK-MED ONE Stop: 10/21/17 05:33 Phenylephrine HCl (Phenylephrine In Ns 100 Mcg/Ml) Confirm Administered Dose 1 mg .ROUTE .STK-MED ONE Stop: 10/21/17 05:40 Sodium Chloride (Saline Flush) 10 ml FLUSH ASDIRECTED PRN PRN Reason: Keep Vein Open - Infant Interaction Infant Disposition, : [place] in Room with Family Infant Interaction: Holding Feeding: Attempted ; Nursed Fair/Poor, Bottle Fed Infant - Recovery Exam Fundal Tone: Firm Fundal Level: 1 Fingerbreadths Below Umbilicus Fundal Placement: Midline Lochia Amount: Scant Lochia Color: Rubra/Red Perineum Description: Intact, Minimal Bruising/Swelling Episiotomy/Laceration: None Bladder Status: Voiding Urinary Elimination: Voided - Exam General: Alert, Oriented, Cooperative Lungs: Clear to Auscultation, Normal Respiratory Effort Cardiovascular: Regular Rate, Regular Rhythm GI/Abdominal Exam: Soft, Tender (appropriate post op ) Extremities: Normal Inspection Skin: Warm, Dry, Intact Wound/Incisions: Healing Well, No Drainage - Problem List & Annotations (1) 40 weeks gestation of SNOMED Code(s): 36984344 Code(s): Z3A.40 - 40 WEEKS GESTATION OF Status: Acute Current Visit: Yes (2) Hepatitis C SNOMED Code(s): 92293798 Code(s): B19.20 - UNSPECIFIED VIRAL HEPATITIS C WITHOUT HEPATIC COMA Status : Acute Current Visit: Yes Qualifiers: Viral hepatitis chronicity: chronic Hepatic coma status: without hepatic coma Qualified Code(s): B18.2 - Chronic viral hepatitis C (3) History of methamphetamine abuse SNOMED Code(s): 217180195 Code(s): Z87.898 - PERSONAL HISTORY OF OTHER SPECIFIED CONDITIONS Status: Acute Current Visit: Yes (4) Two vessel umbilical cord in malik , antepartum SNOMED Code(s): 174671300, 220638632 Code(s): O09.899 - SUPERVISION OF OTHER HIGH RISK PREGNANCIES, UNSP TRIMESTER Status: Acute Current Visit: Yes (5) Chorioamnionitis SNOMED Code(s): 52746714 Code(s): O41.1290 - CHORIOAMNIONITIS, UNSP TRIMESTER, NOT APPLICABLE OR UNSP Status: Acute Current Visit: Yes Qualifiers: Fetus number: single or unspecified fetus Trimester: third trimester Qualified Code(s): O41.1230 - Chorioamnionitis, third trimester, not applicable or unspecified (6) Failure to progress in second stage of labor SNOMED Code(s): 601592033 Code(s): O62.2 - OTHER UTERINE INERTIA Status: Acute Current Visit: Yes (7) S/P primary low transverse SNOMED Code(s): 083427608, 97886088, 366266673, 188990118, 719002407 Code(s): Z98.891 - HISTORY OF UTERINE SCAR FROM PREVIOUS SURGERY Status: Acute Current Visit: Yes - Problem List Review Problem List Initiated/Reviewed/Updated: Yes - My Orders Last 24 Hours: My Active Orders 10/22/17 06:00 Ibuprofen [Motrin] 600 mg PO Q6H PRN - Assessment Assessment:: 26 y/o POD#2 from [facility]TCS after diagnosis of chorioamnionitis, NRFS, and FTP in 1st stage (although only able to push a little over 1 hour due to heart rate tracing) - Plan Plan:: S/p PLTCS * Will have PT visit with patient today. Does state mobility is improved, but still with some numbness. * Routine cares * Breast and bottle feeding
--- NOTE | 2017-10-23 10:02 | PCM.SN ---
- Free Text/Narrative Note: Prerna continues to have report numbness of her inner leg on the left side. She states it is improving, but still feels her knee locking with ambulating. I have recommended she stay in the hospital today and we get a physical therapy evaluation. Preran has verbalized she understands the plan of care. She understands I am unable to tell her when the numbness with subside. I did encourage her that the improvement from yesterday is a great sign.
[2017-10-23] MEDS ORDERED: Magnesium Hydroxide 400 MG/5 ML Susp 30 ML Cup PO PRN (19:49)
[2017-10-24] MEDS: Acetaminophen/oxyCODONE 325-5 MG Tab PO PRN ×2 (00:47→11:05)
[2017-10-24] MEDS: Ibuprofen 600 MG Tab PO PRN (06:05)
--- NOTE | 2017-10-24 07:01 | PCM.DCSUM1 ---
Discharge Summary - Discharge Data Discharge Date: 10/24/17 Discharge Disposition: Home, Self-Care 01 Condition: Good - Discharge Diagnosis/Problem(s) (1) 40 weeks gestation of SNOMED Code(s): 11623094 ICD Code: Z3A.40 - 40 WEEKS GESTATION OF Status: Acute Current Visit: Yes (2) Hepatitis C SNOMED Code(s): 15732006 ICD Code: B19.20 - UNSPECIFIED VIRAL HEPATITIS C WITHOUT HEPATIC COMA Status: Acute Current Visit: Yes Qualifiers: Viral hepatitis chronicity: chronic Hepatic coma status: without hepatic coma Qualified Code(s): B18.2 - Chronic viral hepatitis C (3) History of methamphetamine abuse SNOMED Code(s): 543674027 ICD Code: Z87.898 - PERSONAL HISTORY OF OTHER SPECIFIED CONDITIONS Status: Acute Current Visit: Yes (4) Two vessel umbilical cord in [place] , antepartum SNOMED Code(s): 496048970, 551633961 ICD Code: O09.899 - SUPERVISION OF OTHER HIGH RISK PREGNANCIES, UNSP TRIMESTER Status: Acute Current Visit: Yes (5) Chorioamnionitis SNOMED Code(s): 41407465 ICD Code: O41.1290 - CHORIOAMNIONITIS, UNSP TRIMESTER, NOT APPLICABLE OR UNSP Status: Acute Current Visit: Yes Qualifiers: Fetus number: single or unspecified fetus Trimester: third trimester Qualified Code(s): O41.1230 - Chorioamnionitis, third trimester, not applicable or unspecified (6) Failure to progress in second stage of labor SNOMED Code(s): 314766578 ICD Code: O62.2 - OTHER UTERINE INERTIA Status: Acute Current Visit: Yes (7) S/P primary low transverse SNOMED Code(s): 126600458, 80731504, 520936154, 243851697, 863238807 ICD Code: Z98.891 - HISTORY OF UTERINE SCAR FROM PREVIOUS SURGERY Status: Acute Current Visit: Yes - Patient Summary/Data Operative Procedure(s) Performed: Primary low transverse Complications: None Consults: Consultations 10/23/17 08:37 Consult to Physical Therapy [PT Evaluation and Treatment] [CONS] Routine Recommended Follow-up Testing/Procedures: Follow up in 2 weeks for post op check Hospital Course: 26 y/o presented at 40 3/7 for IOL. This was done with Cytotec, wilson bulb, pitocin, and eventual AROM. Baby with some episodes of lates, recurrent variables. Was able to achieve complete dilation, but developed chorioamnionitis. Had worsening of late, variable decelerations with pushing and after 1 hr of pushing had made no descent of fetus which was thought to be asynclinic on exam. Given this combination of findings decision was made to proceed with PLTCS. See operative note for full details. she did well other than some weakness in a lower extremity. This did improve over course of stay with aid from PT. She was discharged home on POD#3 - Patient Instructions Diet: Regular Diet as Tolerated Activity: No Lifting Over 10 Pounds Activity, Other: Pelvic Rest for 6 weeks Driving: Do Not Drive (While using narcotics ) Showering/Bathing: May Shower, No Tub Bathing/Swimming Wound/Incision Care: Keep Operative Site/Wound Site Clean and Dry Notify Provider of: Fever, Increased Pain, Drainage, Nausea and/or Vomiting - Discharge Plan *PRESCRIPTION DRUG MONITORING PROGRAM REVIEWED*: No *COPY OF PRESCRIPTION DRUG MONITORING REPORT IN PATIENT [place]: No Prescriptions/Med Rec: Acetaminophen with Codeine [Tylenol with Codeine #3 Tablet] 1 - 2 each PO Q6H PRN #20 tablet PRN Reason: Pain Home Medications: Home Meds Vits #93/Iron Fum/FA [ Formula Tablet] 1 tab PO DAILY 10/20/17 [History] Acetaminophen with Codeine [Tylenol with Codeine #3 Tablet] 1 - 2 each PO Q6H PRN #20 tablet 10/24/17 [Rx] Docusate Sodium [Colace] 100 mg PO Q12H PRN cap 10/24/17 [Rx] Ibuprofen [Motrin] 600 mg PO Q6H PRN tablet 10/24/17 [Rx] Patient Handouts: Steps to Quit Smoking Referrals: Cora Ochoa MD [Primary Care Provider] - (2 weeks for check / incision check ) - Discharge Summary/Plan Comment DC Time >30 min.: No - Patient Data Vitals - Most Recent: Last Vital Signs Temp 36.9 C 10/24/17 02:30 Pulse 86 10/24/17 02:25 Resp 16 10/24/17 02:30 BP 100/62 10/24/17 02:25 Pulse Ox 100 10/24/17 02:25 Weight - Most Recent: 70.76 kg I&O - Last 24 hours: Intake & Output 10/23/17 10/24/17 10/24/17 22:59 06:59 14:59 Intake Total 4 Balance 4 Med Orders - Current: Current Medications Benzocaine/Menthol (Dermoplast Pain Relief Newman) 0 gm TOP ASDIRECTED PRN PRN Reason: Perineal Comfort Measure Last Admin: 10/21/17 10:28 Dose: 1 canister Diphenhydramine HCl (Benadryl) 25 mg IVPUSH Q6H PRN PRN Reason: Itching or Nausea Docusate Sodium (Colace) 100 mg PO Q12H PRN PRN Reason: Constipation Emollient Ointment (Lansinoh Hpa) 0 gm TOP ASDIRECTED PRN PRN Reason: Sore Nipples Last Admin: 10/23/17 13:11 Dose: 1 applic Ibuprofen (Motrin) 600 mg PO Q6H PRN PRN Reason: mild pain or fever Last Admin: 10/24/17 06:05 Dose: 600 mg Magnesium Hydroxide (Milk Of Magnesia) 30 ml PO BEDTIME PRN PRN Reason: Constipation Last Admin: 10/23/17 20:30 Dose: 30 ml Naloxone HCl (Narcan) 0.1 mg IVPUSH SEECOMMENT PRN PRN Reason: Respiratory Depression Ondansetron HCl (Zofran) 4 mg IV Q8H PRN PRN Reason: Nausea/Vomiting Oxycodone/Acetaminophen (Percocet 325-5 Mg) 2 tab PO Q4H PRN PRN Reason: Pain (moderate 4-6) Last Admin: 10/24/17 00:47 Dose: 2 tab Witch Ondina (Tucks) 1 pad TOP ASDIRECTED PRN PRN Reason: Perineal Comfort Measure Discontinued Medications Acetaminophen (Tylenol) 975 mg PO NOW ONE Stop: 10/21/17 03:35 Last Admin: 10/21/17 03:46 Dose: 975 mg Bupivacaine HCl (Sensorcaine-Mpf 0.25%) 10 ml .ROUTE .STK-MED ONE Stop: 10/20/17 22:01 Cefazolin Sodium (Ancef) Confirm Administered Dose 2 gm .ROUTE .STK-MED ONE Stop: 10/21/17 05:00 Citric Acid/Sodium Citrate (Bicitra Solution) 30 ml PO ONETIME ONE Stop: 10/21/17 04:50 Last Admin: 10/21/17 04:59 Dose: 30 ml Ephedrine Sulfate (Ephedrine Sulfate) 5 mg IVPUSH ASDIRECTED PRN PRN Reason: HYPOTENTSION Ephedrine Sulfate (Ephedrine Sulfate) 5 mg IVPUSH SEECOMMENT PRN PRN Reason: Other Fentanyl (Sublimaze) 100 mcg EPIDUR Q3H PRN PRN Reason: Pain Last Admin: 10/20/17 18:48 Dose: 100 mcg Fentanyl/Bupivacaine HCl (Fentanyl/Bupivacaine/Ns 2 Mcg-0.125% 100 Ml) 100 ml EPIDUR ASDIRECTED YULIA Last Admin: 10/21/17 02:32 Dose: 100 ml Gentamicin Sulfate (Gentamicin) Confirm Administered Dose 400 mg .ROUTE .STK- MED ONE Stop: 10/21/17 04:20 Last Admin: 10/21/17 16:35 Dose: Not Given Gentamicin Sulfate (Gentamicin) Confirm Administered Dose 400 mg .ROUTE .STK- MED ONE Stop: 10/22/17 04:47 Last Admin: 10/22/17 10:05 Dose: Not Given Lactated Ringer's (Ringers, Lactated) 1,000 mls @ 40 mls/hr IV ASDIRECTED YULIA Last Admin: 10/20/17 16:00 Dose: 40 mls/hr Oxytocin/Lactated Ringer's (Pitocin In Lr 10 Units/1,000 Ml) 10 unit in 1,000 mls @ 12 mls/hr IV TITRATE YULIA; Protocol Last Titration: 10/20/17 23:48 Dose: 4 munits/min, 24 mls/hr Oxytocin/Lactated Ringer's (Pitocin In Lr 10 Units/1,000 Ml) 10 unit in 1,000 mls @ 500 mls/hr IV .CONTINUOUS YULIA Ampicillin Sodium 2 gm/ Sodium (Chloride) 100 mls @ 200 mls/hr IV Q6H YULIA Last Admin: 10/22/17 03:49 Dose: 200 mls/hr Gentamicin Sulfate 350 mg/ (Sodium Chloride) 108.75 mls @ 200 mls/hr IV ONETIME ONE Stop: 10/21/17 04:07 Last Admin: 10/21/17 04:34 Dose: 200 mls/hr Clindamycin Phosphate 900 mg/ (Sodium Chloride) 106 mls @ 100 mls/hr IV ONETIME ONE Stop: 10/21/17 05:52 Last Admin: 10/21/17 16:36 Dose: Not Given Lactated Ringer's (Ringers, Lactated) Confirm Administered Dose 1,000 mls @ as directed .ROUTE .STK-MED ONE Stop: 10/21/17 05:33 Sodium Chloride (Normal Saline) Confirm Administered Dose 100 mls @ as directed .ROUTE .STK-MED ONE Stop: 10/21/17 04:22 Last Admin: 10/21/17 16:35 Dose: Not Given Clindamycin Phosphate 900 mg/ (Sodium Chloride) 106 mls @ 100 mls/hr IV Q8H [facility] Last Admin: 10/22/17 06:09 Dose: 100 mls/hr Dextrose/Lactated Ringer's (Dextrose 5%-Lactated Ringers) 1,000 mls @ 125 mls/ hr IV ASDIRECTED [facility] Stop: 10/21/17 19:36 Last Admin: 10/21/17 12:02 Dose: Not Given Gentamicin Sulfate 350 mg/ (Sodium Chloride) 108.75 mls @ 200 mls/hr IV ONETIME ONE Stop: 10/22/17 05:02 Last Admin: 10/22/17 05:26 Dose: 200 mls/hr Sodium Chloride (Normal Saline) Confirm Administered Dose 100 mls @ as directed .ROUTE .STK-MED ONE Stop: 10/22/17 04:55 Last Admin: 10/22/17 10:05 Dose: Not Given Ketorolac Tromethamine (Toradol) Confirm Administered Dose 30 mg .ROUTE .STK- MED ONE Stop: 10/21/17 05:33 Ketorolac Tromethamine (Toradol) 30 mg IVPUSH Q6H [facility] Stop: 10/22/17 00:01 Last Admin: 10/22/17 00:02 Dose: 30 mg Lidocaine/Epinephrine (Xylocaine-Mpf 2%-Epi 1:200,000) Confirm Administered Dose 20 ml .ROUTE .STK-MED ONE Stop: 10/21/17 05:00 Meperidine HCl (Demerol) Confirm Administered Dose 50 mg .ROUTE .STK-MED ONE Stop: 10/21/17 05:37 Metoclopramide HCl (Reglan) 10 mg IVPUSH ONETIME ONE Stop: 10/21/17 04:50 Last Admin: 10/21/17 05:03 Dose: 10 mg Misoprostol (Cytotec) 25 mcg VAG Q4H PRN PRN Reason: cervical ripening Last Admin: 10/20/17 08:14 Dose: 25 mcg Misoprostol (Cytotec) Confirm Administered Dose 25 mcg .ROUTE .STK-MED ONE Stop: 10/20/17 07:38 Last Admin: 10/20/17 11:58 Dose: Not Given Morphine Sulfate (Duramorph Pf) Confirm Administered Dose 10 mg .ROUTE .STK-MED ONE Stop: 10/21/17 05:54 Nalbuphine HCl (Nubain) 10 mg IVPUSH Q2H PRN PRN Reason: pain Ondansetron HCl (Zofran) 4 mg IVPUSH Q4H PRN PRN Reason: Nausea/Vomiting Last Admin: 10/21/17 03:46 Dose: 4 mg Oxytocin (Pitocin) Confirm Administered Dose 10 unit .ROUTE .STK-MED ONE Stop: 10/21/17 05:33 Phenylephrine HCl (Phenylephrine In Ns 100 Mcg/Ml) Confirm Administered Dose 1 mg .ROUTE .STK-MED ONE Stop: 10/21/17 05:40 Sodium Chloride (Saline Flush) 10 ml FLUSH ASDIRECTED PRN PRN Reason: Keep Vein Open
--- NOTE | 2017-10-24 07:55 | PCM48HPAN ---
Post Anesthesia Note - EVALUATION WITHIN 48HRS OF ANESTHETIC Vital Signs in Normal Range: Yes Patient Participated in Evaluation: Yes Respiratory Function Stable: Yes Airway Patent: Yes Cardiovascular Function Stable: Yes Hydration Status Stable: Yes Pain Control Satisfactory: Yes Nausea and Vomiting Control Satisfactory: Yes Mental Status Recovered: Yes - COMMENTS/OBSERVATIONS Free Text/Narrative:: Patient awaiting PT evaluation later today. Patient still exhibits symptoms of left leg weakness. Plan to reevaluate after PT evaluation. Thank-you.
== END 2017-10-24 13:30 | disposition home or self-care (01) | DRG 765 ==
LOC: JD.OB 05:26 → EEVIPCON 06:48 → OBSVTOIN 10-21 05:26 → JD.OB 10-21 05:27
PROVIDERS: ADMIT Obstetrics & Gynecology; ATTEND Obstetrics & Gynecology
PROC: 6A550ZT Pheresis of Cord Blood Stem Cells, Single (ICD-10-PCS; principal; 2017-10-21)
PROC: 10907ZC Drainage of Amniotic Fluid, Therapeutic from Products of Conception, Via Natural or Artificial Opening (ICD-10-PCS; principal; 2017-10-21)
PROC: 10D00Z1 Extraction of Products of Conception, Low, Open Approach (ICD-10-PCS; principal; 2017-10-21)
PROC: 10S07ZZ Reposition Products of Conception, Via Natural or Artificial Opening (ICD-10-PCS; principal; 2017-10-21)
PROC: 3E033VJ Introduction of Other Hormone into Peripheral Vein, Percutaneous Approach (ICD-10-PCS; principal; 2017-10-21)
PROC: 0U7C7ZZ Dilation of Cervix, Via Natural or Artificial Opening (ICD-10-PCS; principal; 2017-10-21)
PROC: 3E0P7VZ Introduction of Hormone into Female Reproductive, Via Natural or Artificial Opening (ICD-10-PCS; principal; 2017-10-21)
PROC: 00HU33Z Insertion of Infusion Device into Spinal Canal, Percutaneous Approach (ICD-10-PCS; 2017-10-21)
PROC: 3E0R3BZ Introduction of Anesthetic Agent into Spinal Canal, Percutaneous Approach (ICD-10-PCS; 2017-10-21)
DX: O48.0 Post-term pregnancy (principal); O41.1230 Chorioamnionitis, third trimester, not applicable or unspecified; O98.42 Viral hepatitis complicating childbirth; O32.9XX0 Maternal care for malpresentation of fetus, unspecified, not applicable or unspecified; Z37.0 Single live birth; B18.2 Chronic viral hepatitis C; O62.2 Other uterine inertia; Z3A.40 40 weeks gestation of pregnancy; O76 Abnormality in fetal heart rate and rhythm complicating labor and delivery; O69.89X0 Labor and delivery complicated by other cord complications, not applicable or unspecified; O90.89 Other complications of the puerperium, not elsewhere classified; R20.0 Anesthesia of skin; R53.1 Weakness; Z87.891 Personal history of nicotine dependence
CPT/HCPCS: 01967; 01968; 36415; 51702; 59025; 80053; 85027; 86592; 86850; 86900; 86901; 87070; 87641; 97110-GP; 97116-GP; 97162-GP; A9270-GY; J0290; J0690; J1580; J1885; J2175; J2270; J2370; J2405; J2590; J2765; J3010; J3490; J7030; J7120

== ENCOUNTER 2020-01-18 16:43 | Emergency (ER) | payer MEDICAID ==
[2020-01-18] MEDS ORDERED: Sodium Chloride 0.9% 10 ML Syringe FLUSH PRN (17:21)
[2020-01-18] MEDS ORDERED: Sodium Chloride 0.9% 1,000 ML IV ONE ×2 (17:21→18:35)
[2020-01-18] MEDS ORDERED: Ondansetron 4 MG/2 ML SDV IVPUSH ONE (17:25)
[2020-01-18] MEDS ORDERED: Ketorolac 30 MG/ML SDV IVPUSH ONE (17:25)
--- NOTE | 2020-01-18 17:29 | EDM.PDOC ---
ED HPI GENERAL MEDICAL PROBLEM - General Chief Complaint: Flank Pain Stated Complaint: CHILLS/FATIGUE/FEVER/LT FLANK PAIN/DARK URINE Time Seen by Provider: 01/18/20 17:00 Source of Information: Reports: Patient, RN Notes Reviewed History Limitations: Reports: No Limitations - History of Present Illness INITIAL COMMENTS - FREE TEXT/NARRATIVE: Patient is a 29-year-old female who presents to the ED for her ongoing urinary issues. Patient notes that since Friday morning, she has had pain with urination, and urinary frequency. She states that she awoke this morning with left flank pain. The patient states that the pain is constant, nothing seems to really make it better or worse. She does note that she has had a history of UTIs in the past but denies any sort of kidney infections or kidney stones. Patient denies any further abdomen surgeries other than a . Patient notes she has been febrile at home, and her temperature was 102 F when she took it today. She did take a Tylenol 1 hour prior to coming to the ER. Her temperature subsequently is 99.1 F, pulse is 137, respiratory rate 18, blood pressure is 126/85 and her O2 sats are 100% on room air. Patient states she has been nauseous but not been throwing up, and she states she has not had any diarrhea. She has been drinking Powerade and water to keep her nutrition up but she has not really been able to eat much for food and she has not been able to get out of bed. She does states she has generalized fatigue. She states she did get a Depo shot the Friday after Thanksgiving, so she denies any obvious chance of . Left Flank Pain Score (Numeric/FACES): 10 - Related Data Allergies Allergy/AdvReac Type Severity Reaction Status Date / Time No Known Allergies Allergy Verified 01/18/20 17:09 Home Meds: Home Meds Vits #93/Iron Fum/FA [ Formula Tablet] 1 tab PO DAILY 10/20/17 [History] Acetaminophen with Codeine [Tylenol with Codeine #3 Tablet] 1 - 2 each PO Q6H PRN #20 tablet 10/24/17 [Rx] Docusate Sodium [Colace] 100 mg PO Q12H PRN cap 10/24/17 [Rx] Ibuprofen [Motrin] 600 mg PO Q6H PRN tablet 10/24/17 [Rx] Cefdinir [Omnicef] 300 mg PO BID 7 Days #14 cap 01/18/20 [Rx] Ondansetron [Zofran ODT] 4 mg PO Q8H PRN #15 tab.dis 01/18/20 [Rx] Past Medical History Gastrointestinal History: Reports: GERD, Hepatitis, Other (See Below) Other Gastrointestinal History: Hepatitis C Genitourinary History: Reports: UTI, Recurrent [employer] History: Reports: , Spontaneous - Infectious Disease History Infectious Disease History: Reports: Hepatitis C, MRSA - Past Surgical History HEENT Surgical History: Reports: Oral Surgery GI Surgical History: Reports: Other (See Below) Other GI Surgeries/Procedures: liver biopsy Female Surgical History: Reports: Section Social & Family History - Tobacco Use Tobacco Use Status *Q: Current Every Day Tobacco User Years of Tobacco use: 10 Packs/Tins Daily: 0.5 - Caffeine Use Caffeine Use: Reports: None - Recreational Drug Use Recreational Drug Use: Yes Recreational Drug Type: Reports: Marijuana/Hashish ED ROS GENERAL - Review of Systems Review Of Systems: Comprehensive ROS is negative, except as noted in HPI. ED EXAM, RENAL/ - Physical Exam Exam: See Below Exam Limited By: No Limitations General Appearance: Alert, WD/WN, No Apparent Distress Respiratory/Chest: No Respiratory Distress, Lungs Clear, Normal Breath Sounds, No Accessory Muscle Use, Chest Non-Tender Cardiovascular: Normal Peripheral Pulses, Regular Rate, Rhythm, No Murmur GI/Abdominal: Normal Bowel Sounds, Soft, No Distention, No Mass, Tender (generalized, slight tenderness over RLQ but her pain is mostly on the left flank) (Female) Exam: Deferred Back Exam: CVA Tenderness (L). No: CVA Tenderness (R) Extremities: Normal Inspection, Normal Capillary Refill Neurological: Alert, Oriented, Normal Cognition, No Motor/Sensory Deficits Psychiatric: Normal Affect, Normal Mood Skin Exam: Warm, Dry, Intact, Normal Color, No Rash Course - Vital Signs Last Recorded V/S: Last Vital Signs Temp 99.1 F 01/18/20 16:59 Pulse 137 H 01/18/20 16:59 Resp 18 01/18/20 16:59 BP 99/67 01/18/20 17:46 Pulse Ox 100 01/18/20 16:59 - Orders/Labs/Meds Orders: Active Orders 24 hr Category Date Time Status Blood Pressure Mgt: Sepsis [RC] Q15MX2 Care 01/18/20 17:22 Ordered Peripheral IV Care [RC] . DIRECTED Care 01/18/20 17:23 Ordered Abdomen Pelvis wo Cont [CT] Stat Exams 01/18/20 18:21 Ordered CULTURE BLOOD [BC] Stat Lab 01/18/20 17:22 Ordered CULTURE BLOOD [BC] Stat Lab 01/18/20 18:06 Received CULTURE URINE [RM] Routine Lab 01/18/20 17:25 Ordered Sodium Chloride 0.9% [Normal Saline] 1,000 ml Med 01/18/20 18:35 Ordered IV ONETIME Sodium Chloride 0.9% [Saline Flush] Med 01/18/20 17:21 Ordered 10 ml FLUSH ASDIRECTED PRN Blood Culture x2 Reflex Set [OM.PC] Stat Oth 01/18/20 17:21 Ordered Peripheral IV Insertion Adult [OM.PC] Routine Oth 01/18/20 17:23 Ordered Saline Lock Insert [OM.PC] Stat Oth 01/18/20 17:21 Ordered Medication Orders Sodium Chloride (Normal Saline) 1,000 mls @ 999 mls/hr IV ONETIME ONE Stop: 01/18/20 19:35 Last Admin: 01/18/20 19:04 Dose: 999 mls/hr Documented by: ATIYA Sodium Chloride (Saline Flush) 10 ml FLUSH ASDIRECTED PRN PRN Reason: Keep Vein Open Last Admin: 01/18/20 17:37 Dose: 10 ml Documented by: ATIYA Labs: Laboratory Tests 01/18/20 01/18/20 01/18/20 Range/Units 17:12 17:12 17:33 WBC 10.46 H (3.98-10.04) K/mm3 RBC 4.35 (3.98-5.22) M/mm3 Hgb 13.9 D (11.2-15.7) gm/dl Hct 39.9 (34.1-44.9) % MCV 91.7 D (79.4-94.8) fl MCH 32.0 (25.6-32.2) pg MCHC 34.8 (32.2-35.5) g/dl RDW Std Deviation 39.1 (36.4-46.3) fL Plt Count 165 L (182-369) K/mm3 MPV 9.1 L (9.4-12.3) fl Neutrophils % (Manual) 75 H (40-60) % Band Neutrophils % 1 (0-10) % Lymphocytes % (Manual) 12 L (20-40) % Atypical Lymphs % 2 % Monocytes % (Manual) 10 (2-10) % Eosinophils % (Manual) 0 L (0.7-5.8) % Basophils % (Manual) 0 L (0.1-1.2) Platelet Estimate Adequate RBC Morph Comment Normal PT (9.7-12.0) SECONDS INR Sodium (136-145) mEq/L Potassium (3.5-5.1) mEq/L Chloride (98-107) mEq/L Carbon Dioxide (21-32) mEq/L Anion Gap (5-15) BUN (7-18) mg/dL Creatinine (0.55-1.02) mg/dL Est Cr Clr Drug Dosing mL/min Estimated GFR (MDRD) (>60) mL/min BUN/Creatinine Ratio (14-18) Glucose (74-106) mg/dL Lactic Acid (0.4-2.0) mmol/L Calcium (8.5-10.1) mg/dL Total Bilirubin (0.2-1.0) mg/dL AST (15-37) U/L ALT (14-59) U/L Alkaline Phosphatase (46-116) U/L C-Reactive Protein (<1.0) mg/dL Total Protein (6.4-8.2) g/dl Albumin (3.4-5.0) g/dl Globulin gm/dL Albumin/Globulin Ratio (1-2) Urine Color Yellow (Yellow) Urine Appearance Cloudy H (Clear) Urine pH 7.0 (5.0-8.0) Ur Specific [place] 1.020 (1.005-1.030) Urine Protein 2+ H (Negative) Urine Glucose (UA) Negative (Negative) Urine Ketones Negative (Negative) Urine Occult Blood 1+ H (Negative) Urine Nitrite Positive H (Negative) Urine Bilirubin Negative (Negative) Urine Urobilinogen >=8.0 H (0.2-1.0) Ur Leukocyte Esterase 3+ H (Negative) Urine RBC 5-10 H (0-5) /hpf Urine WBC 40-50 H (0-5) /hpf Ur Squamous Epith Cells 10-20 H (0-5) /hpf Urine Bacteria Many H (FEW) /hpf Urine Mucus Few (FEW) /hpf Urine HCG, Qual Negative (NEGATIVE) 01/18/20 01/18/20 01/18/20 Range/Units 17:33 17:33 18:06 WBC (3.98-10.04) K/mm3 RBC (3.98-5.22) M/mm3 Hgb (11.2-15.7) gm/dl Hct (34.1-44.9) % MCV (79.4-94.8) fl MCH (25.6-32.2) pg MCHC (32.2-35.5) g/dl RDW Std Deviation (36.4-46.3) fL Plt Count (182-369) K/mm3 MPV (9.4-12.3) fl Neutrophils % (Manual) (40-60) % Band Neutrophils % (0-10) % Lymphocytes % (Manual) (20-40) % Atypical Lymphs % % Monocytes % (Manual) (2-10) % Eosinophils % (Manual) (0.7-5.8) % Basophils % (Manual) (0.1-1.2) Platelet Estimate RBC Morph Comment PT 11.9 (9.7-12.0) SECONDS INR 1.11 Sodium 129 L D (136-145) mEq/L Potassium 3.2 L (3.5-5.1) mEq/L Chloride 94 L (98-107) mEq/L Carbon Dioxide 28 (21-32) mEq/L Anion Gap 10.2 (5-15) BUN 8 (7-18) mg/dL Creatinine 0.7 (0.55-1.02) mg/dL Est Cr Clr Drug Dosing 89.48 mL/min Estimated GFR (MDRD) > 60 (>60) mL/min BUN/Creatinine Ratio 11.4 L (14-18) Glucose 113 H (74-106) mg/dL Lactic Acid 1.1 (0.4-2.0) mmol/L Calcium 8.5 (8.5-10.1) mg/dL Total Bilirubin 0.7 (0.2-1.0) mg/dL AST 18 (15-37) U/L ALT 40 (14-59) U/L Alkaline Phosphatase 72 (46-116) U/L C-Reactive Protein 28.3 H* (<1.0) mg/dL Total Protein 7.1 (6.4-8.2) g/dl Albumin 2.7 L (3.4-5.0) g/dl Globulin 4.4 gm/dL Albumin/Globulin Ratio 0.6 L (1-2) Urine Color (Yellow) Urine Appearance (Clear) Urine pH (5.0-8.0) Ur Specific [place] (1.005-1.030) Urine Protein (Negative) Urine Glucose (UA) (Negative) Urine Ketones (Negative) Urine Occult Blood (Negative) Urine Nitrite (Negative) Urine Bilirubin (Negative) Urine Urobilinogen (0.2-1.0) Ur Leukocyte Esterase (Negative) Urine RBC (0-5) /hpf Urine WBC (0-5) /hpf Ur Squamous Epith Cells (0-5) /hpf Urine Bacteria (FEW) /hpf Urine Mucus (FEW) /hpf Urine HCG, Qual (NEGATIVE) Meds: Medications Generic Name Dose Route Start Last Admin Trade Name Freq PRN Reason Stop Dose Admin Sodium Chloride 1,000 mls @ 999 mls/hr 01/18/20 18:35 01/18/20 19:04 Normal Saline IV 01/18/20 19:35 999 mls/hr ONETIME ONE Administration Sodium Chloride 10 ml 01/18/20 17:21 01/18/20 17:37 Saline Flush FLUSH 10 ml ASDIRECTED PRN Administration Keep Vein Open Discontinued Medications Generic Name Dose Route Start Last Admin Trade Name Freq PRN Reason Stop Dose Admin Sodium Chloride 1,000 mls @ 999 mls/hr 01/18/20 17:21 01/18/20 17:38 Normal Saline IV 01/18/20 18:21 999 mls/hr BOLUS ONE Administration Protocol Ceftriaxone Sodium 2 gm/ 100 mls @ 200 mls/hr 01/18/20 18:34 01/18/20 19:07 Sodium Chloride IV 01/18/20 19:03 200 mls/hr ONETIME ONE Administration Ketorolac Tromethamine 30 mg 01/18/20 17:25 01/18/20 17:41 Toradol IVPUSH 01/18/20 17:26 30 mg ONETIME ONE Administration Ondansetron HCl 4 mg 01/18/20 17:25 01/18/20 17:39 Zofran IVPUSH 01/18/20 17:26 4 mg ONETIME ONE Administration - Re-Assessments/Exams Free Text/Narrative Re-Assessment/Exam: 01/18/20 17:29 Patient presents to the ED for the evaluation of her ongoing left flank pain. I was notified by nursing staff, that she does flag in for possible sepsis risk. Appropriate work-up has been ordered in regards to this. Urine was grossly positive for UTI as a sample was given at time of triage, nitrite is positive and leukocyte esterase is 3+ at this time micro is pending. 01/18/20 19:[address] scan shows no focal abnormalities, no stone or ureteral dilatation was seen. No perinephric stranding were appreciated. Patient's white count is elevated at 10.46 with 75% neutrophil count 1 band. Sodium mildly low at 129, potassium mildly low at 3.2, lactic acid is okay, CRP is elevated at 28.3, her UA shows cloudy urine that is positive nitrites 3+ leukocyte esterase 5-10 RBCs, 40-50 white blood cells, 10-20 squamous epithelials and many bacteria present. I do suspect highly that the patient has a left-sided pyelonephritis, she will get 2 g of Rocephin, and get another bag of regular fluids, due to the low sodium and not really eating/drinking much. Departure - Departure Time of Disposition: 19:31 Disposition: Home, Self-Care 01 Condition: Good Clinical Impression: Pyelonephritis - Discharge Information *PRESCRIPTION DRUG MONITORING PROGRAM REVIEWED*: No *COPY OF PRESCRIPTION DRUG MONITORING REPORT IN PATIENT [place]: No Prescriptions: Cefdinir [Omnicef] 300 mg PO BID 7 Days #14 cap Ondansetron [Zofran ODT] 4 mg PO Q8H PRN #15 tab.dis PRN Reason: Nausea Instructions: Pyelonephritis, Adult, [id number] Referrals: Phyllis Broderick DO [Primary Care Provider] - Forms: ED Department Discharge Additional Instructions: You have been evaluated in the ED for your urinary symptoms/left flank pain. You were given IV fluids, and IV antibiotics because your urinalysis was consistent with an acute urinary tract infection/kidney infection. Your urine was sent for culture, and you will be notified if you should need a change in your antibiotic. This may take up to 48 hours to result. You may take AZO for urinary pain relief. This is available over the counter, and can be attained at any retail store like [employer] or any pharmacy. Please be aware that this medication will make your urine turn orange. You have been given a prescription for Omnicef (cefdinir), 300 mg 1 tablet 2 times a day for 7 days. This has been electronically sent to the [place] pharmacy located in the [facility] grocery store near [facility]. Please note that the antibiotics can take up to 48 hours to start working. You may pick this up and start taking tomorrow morning as directed. You were given a prescription for Zofran as well, please take 1 tab dissolvable under your tongue every 8 hours as needed for further nausea. Please increase your oral fluid intake with fluids like Gatorade/Powerade and try to stay adequately hydrated. Please return to the ED if your symptoms change or worsen. Sepsis Event Note (ED) - Evaluation Sepsis Screening Result: No Definite Risk - Focused Exam Vital Signs: Vital Signs Temp Pulse Resp BP Pulse Ox 01/18/20 17:46 99/67 01/18/20 16:59 99.1 F 137 H 18 126/85 100 - My Orders Last 24 Hours: My Active Orders 01/18/20 17:21 Sodium Chloride 0.9% [Saline Flush] 10 ml FLUSH ASDIRECTED PRN Blood Culture x2 Reflex Set [OM.PC] Stat Saline Lock Insert [OM.PC] Stat 01/18/20 17:22 Blood Pressure Mgt: Sepsis [RC] Q15MX2 CULTURE BLOOD [BC] Stat 01/18/20 17:23 Peripheral IV Care [RC] . DIRECTED Peripheral IV Insertion Adult [OM.PC] Routine 01/18/20 17:25 CULTURE URINE [RM] Routine 01/18/20 18:06 CULTURE BLOOD [BC] Stat 01/18/20 18:21 Abdomen Pelvis wo Cont [CT] Stat 01/18/20 18:35 Sodium Chloride 0.9% [Normal Saline] 1,000 ml IV ONETIME - Assessment/Plan Last 24 Hours: My Active Orders 01/18/20 17:21 Sodium Chloride 0.9% [Saline Flush] 10 ml FLUSH ASDIRECTED PRN Blood Culture x2 Reflex Set [OM.PC] Stat Saline Lock Insert [OM.PC] Stat 01/18/20 17:22 Blood Pressure Mgt: Sepsis [RC] Q15MX2 CULTURE BLOOD [BC] Stat 01/18/20 17:23 Peripheral IV Care [RC] . DIRECTED Peripheral IV Insertion Adult [OM.PC] Routine 01/18/20 17:25 CULTURE URINE [RM] Routine 01/18/20 18:06 CULTURE BLOOD [BC] Stat 01/18/20 18:21 Abdomen Pelvis wo Cont [CT] Stat 01/18/20 18:35 Sodium Chloride 0.9% [Normal Saline] 1,000 ml IV ONETIME
[2020-01-18] MEDS ORDERED: cefTRIAXone 2 GM in Sodium Chloride 0.9% 100 ML IV ONE (18:34)
--- NOTE | 2020-01-18 19:14 | CT ---
CT abdomen and pelvis Technique: Multiple axial sections were obtained from above the dome of the diaphragm inferiorly to the pubic symphysis. Intravenous and oral contrast not utilized. Reconstructed coronal and sagittal images were obtained. Study was performed as a ureteral stone protocol. Comparison: No prior abdominal imaging is available. Findings: Kidneys: No ureteral calcifications or ureteral dilatation is seen. Left kidney shows a minimal calcification measuring 1 mm or less within the midpole. No additional renal calcifications are seen. Lungs: Visualized lung bases show nothing acute. Liver and spleen: Noncontrast appearance of the liver and spleen appear within normal limits. Gallbladder shows no calcified gallstones. Adrenal glands: Adrenal glands are not well seen due to the lack of fat but no discrete adrenal nodule is seen. Pancreas: Pancreas is poorly seen due to lack of fat but it is felt to be without mass. Aorta, retroperitoneal and mesenteric: Aorta shows no aneurysm. No retroperitoneal adenopathy or mesenteric abnormalities are appreciated. Pelvis: No pelvic mass or adenopathy is appreciated. Bowel: No bowel dilatation or bowel thickening is seen. Appendix is poorly seen due to lack of fat but most likely is within normal limits. Bone window settings: No abnormality is appreciated. Impression: 1. No ureteral dilatation or ureteral stone is seen. Very minimal mid left renal calcification is seen. 2. Nothing acute is definitely appreciated on noncontrast CT study of the abdomen and pelvis. Diagnostic code #2
== END 2020-01-18 21:29 | disposition home or self-care (01) ==
LOC: JD.ED 16:43
DX: N12 Tubulo-interstitial nephritis, not specified as acute or chronic (principal); F17.210 Nicotine dependence, cigarettes, uncomplicated
CPT/HCPCS: 36415; 74176; 80053; 81001; 81025; 83605; 85007; 85027; 85610; 86140; 87040; 87086; 87088; 87186; 96365; 96375; 99284; J0696; J1885; J2405; J7030; J7050